=== PATIENT | female | born 1990 | race Hispanic/Latino ===

== ENCOUNTER 2020-10-30 17:31 | Observation (INO) | payer OTHER, MEDICAID ==
[~2020-10-30] VITALS: Ht 160 cm; Wt 100.7 kg
[2020-10-30 17:54] VITALS: BP 109/64
[2020-10-30 18:37] LABS: APPEARANCE,URINE Cloudy (CLEAR); BILIRUBIN,URINE Negative (NEGATIVE); COLOR,URINE Yellow (YELLOW); GLUCOSE, URINE (UA) 250 mg/dL (NEGATIVE); KETONES,URINE Trace mg/dL (NEGATIVE); LEUKOCYTE ESTERASE ,URINE Large (NEGATIVE); NITRATE,URINE Negative (NEGATIVE); OCCULT BLOOD,URINE Negative (NEGATIVE); PROTEIN,URINE Trace mg/dL (NEGATIVE)
[2020-10-30 18:51] LABS: BACTERIA,URINE Moderate /HPF (None Seen); MUCUS,URINE Moderate LPF (None Seen); SQUAMOUS EPITHELIAL CELL,UR Moderate /HPF (0-2)
[2020-10-30] MEDS ORDERED: LACTATED RINGERS 1000ML 1,000 ML IV ONE (19:57)
[2020-10-30] MEDS ORDERED: CEFTRIAXONE SODIUM 1 GM IVP SCH (20:00)
[2020-10-30] MEDS ORDERED: LACTATED RINGERS 1000ML 1,000 ML IV SCH (20:00)
== END 2020-10-31 08:30 | disposition home or self-care (01) ==
LOC: EDH 17:31 → LDH 17:37
PROVIDERS: ADMIT Obstetrics & Gynecology; ATTEND Obstetrics & Gynecology
DX: O62.9 Abnormality of forces of labor, unspecified (principal); O24.913 Unspecified diabetes mellitus in pregnancy, third trimester; Z86.16 Personal history of COVID-19; Z3A.37 37 weeks gestation of pregnancy
CPT/HCPCS: 59025; 81001; 82948 ×2; 87088; 96361 ×2; 96374; 99284; G0378 ×14; J0696; J7120 ×4; 96360

== ENCOUNTER 2020-12-04 02:50 | Inpatient (IN) | payer OTHER, MEDICAID ==
[2020-12-04] VITALS (11 sets, daily range): BP systolic 104–123; BP diastolic 55–84
[~2020-12-04] VITALS: Ht 160 cm; Wt 93.4 kg
[~2020-12-04 02:50] MED LIST: AMOX500C2 PO; CALC750T4 PO; GLYB5TAB8 PO; [UNRECOGNIZED DRUG - OTHER] PO
[2020-12-04 04:23] LABS: APPEARANCE,URINE Cloudy (CLEAR); BILIRUBIN,URINE Moderate (NEGATIVE); COLOR,URINE Dark Yellow (YELLOW); GLUCOSE, URINE (UA) Negative (NEGATIVE); KETONES,URINE Trace mg/dL (NEGATIVE); LEUKOCYTE ESTERASE ,URINE Small (NEGATIVE); NITRATE,URINE Negative (NEGATIVE); OCCULT BLOOD,URINE Large (NEGATIVE); PH,URINE 5.5 (5.0-8.0); PROTEIN,URINE POS 1+ mg/dL (NEGATIVE)
[2020-12-04 04:30] LABS: BACTERIA,URINE Few /HPF (None Seen); RBC,URINE >100 /HPF (0-1)
[2020-12-04] MEDS ORDERED: 0.9%NACL 1000ML 1,000 ML IV ONE ×3 (04:30→06:26)
[2020-12-04] MEDS ORDERED: METOCLOPRAMIDE 10 MG/2 ML VIAL IVP ONE (04:30)
[2020-12-04] MEDS ORDERED: ONDANSETRON 4MG INJ IVP ONE (04:30)
[2020-12-04] MEDS ORDERED: KETOROLAC 30MG VIAL (30MG/ML) IV ONE (04:30)
[2020-12-04 04:31] LABS: MUCUS,URINE Moderate LPF (None Seen)
[2020-12-04 05:48] LABS: BASOPHILS % (AUTO) 0.2 % (0.0-5.0); EOSINOPHILS % (AUTO) 0.6 % (0.0-8.0); HEMATOCRIT 44.1 % (36-48); LYMPHOCYTES % (AUTO) 5.5 % (21.0-51.0); MEAN CORPUSCULAR HEMOGLOBIN 22.8 pg (27.0-33.0); MEAN CORPUSCULAR HGB CONC 29.5 g/dL (32.0-36.0); MEAN CORPUSCULAR VOLUME 77.4 fL (79-99); MONOCYTES % (AUTO) 2.8 % (3.0-13.0); NEUTROPHILS % (AUTO) 90.6 % (40.0-77.0); PLATELET COUNT (AUTO) 294 K/uL (130-400); RED CELL DISTRIBUTION WIDTH 18.9 % (11.0-15.5); WHITE BLOOD COUNT (AUTO) 11.1 K/uL (4.8-10.8)
[2020-12-04 06:06] LABS: ALBUMIN 3.6 g/dL (3.5-5.0); BILIRUBIN,TOTAL 0.6 mg/dL (0.2-1.0); CREATININE 0.6 mg/dL (0.5-1.5); POTASSIUM 3.9 mmol/L (3.5-5.1); TOTAL PROTEIN, SERUM 7.5 g/dL (6.0-8.3)
[2020-12-04] MEDS ORDERED: MORPHINE 2 MG SYG IVP ONE (06:15)
[2020-12-04] MEDS ORDERED: FAMOTIDINE 20MG VIAL IV ONE ×2 (06:15→06:27)
[2020-12-04] MEDS ORDERED: MORPHINE 2 MG SYG ONE (06:26)
[2020-12-04] MEDS ORDERED: PANTOPRAZOLE 40 MG/VIAL ONE (06:26)
[2020-12-04] MEDS: PANTOPRAZOLE 40 MG/VIAL IVP SCH ×2 (06:37→08:50)
[2020-12-04] MEDS ORDERED: LACTULOSE 20 GM/30 ML UDCUP PO PRN (06:45)
[2020-12-04] MEDS ORDERED: ACETAMINOPHEN 325 MG TAB PO PRN ×2 (06:45)
[2020-12-04 07:09] LABS: HEMOGLOBIN A1C 6.8 % (4.0-6.0)
[2020-12-04 07:10] LABS: CHOLESTEROL 241 mg/dL (<200); HDL CHOLESTEROL 83 mg/dL (35-85); LDL DIRECT 129 mg/dL (0-99); TRIGLYCERIDES 62 mg/dL (30-200)
[2020-12-04] MEDS: LACTATED RINGERS 1000ML 1,000 ML IV SCH ×4 (08:45→23:52)
[2020-12-04] MEDS: CEFTRIAXONE 1G VIAL IVP SCH (08:45)
[2020-12-04] MEDS: MORPHINE 2 MG SYG IV PRN ×2 (08:46→18:32)
[2020-12-04] MEDS: ONDANSETRON 4MG INJ IV PRN ×2 (08:47→18:39)
[2020-12-05] VITALS (10 sets, daily range): BP systolic 107–122; BP diastolic 48–67
[2020-12-05 05:17] LABS: BASOPHILS % (AUTO) 0.1 % (0.0-5.0); EOSINOPHILS % (AUTO) 0.4 % (0.0-8.0); LYMPHOCYTES % (AUTO) 7.6 % (21.0-51.0); MEAN CORPUSCULAR HEMOGLOBIN 23.5 pg (27.0-33.0); MEAN CORPUSCULAR HGB CONC 30.3 g/dL (32.0-36.0); MEAN CORPUSCULAR VOLUME 77.6 fL (79-99); MONOCYTES % (AUTO) 5.1 % (3.0-13.0); NEUTROPHILS % (AUTO) 86.5 % (40.0-77.0); PLATELET COUNT (AUTO) 198 K/uL (130-400); RED BLOOD CELL COUNT(AUTO) 4.64 MIL/uL (4.00-5.50); RED CELL DISTRIBUTION WIDTH 18.6 % (11.0-15.5); WHITE BLOOD COUNT (AUTO) 7.5 K/uL (4.8-10.8)
[2020-12-05 05:45] LABS: CREATININE 0.6 mg/dL (0.5-1.5); POTASSIUM 3.1 mmol/L (3.5-5.1)
[2020-12-05] MEDS ORDERED: POTASSIUM CHLORIDE 10% ELIXIR 20 MEQ/15 ML UDCUP PO PRN (07:45)
[2020-12-05] MEDS ORDERED: KCL 20 MEQ ERTAB PO PRN (07:45)
[2020-12-05] MEDS ORDERED: POTASSIUM CHLORIDE 20MEQ/100ML 100 ML IV PRN (07:45)
[2020-12-05] MEDS: CEFTRIAXONE 1G VIAL IVP SCH (07:58)
[2020-12-05 08:00] LABS: ALBUMIN 2.4 g/dL (3.5-5.0); BILIRUBIN,DIRECT 0.1 mg/dL (0.0-0.3); BILIRUBIN,TOTAL 0.4 mg/dL (0.2-1.0); TOTAL PROTEIN, SERUM 5.6 g/dL (6.0-8.3)
[2020-12-05] MEDS: LACTATED RINGERS 1000ML 1,000 ML IV SCH ×3 (08:02→22:45)
[2020-12-05 08:06] LABS: CREATINE KINASE, TOTAL 26 U/L (21-232); MYOGLOBIN 19 ng/mL (10-92); TROPONIN I < 0.04 ng/mL (0.00-0.06)
[2020-12-05] MEDS: POTASSIUM CHLORIDE 20MEQ/100ML 100 ML IV PRN ×3 (08:24→15:37)
[2020-12-05] MEDS: PANTOPRAZOLE 40 MG/VIAL IVP SCH (08:24)
[2020-12-05] MEDS: MORPHINE 2 MG SYG IV PRN (08:24)
[2020-12-05] MEDS ORDERED: 0.9%NACL 1000ML 1,000 ML IV SCH ×2 (09:15→12:15)
[2020-12-06] VITALS (25 sets, daily range): BP systolic 101–126; BP diastolic 48–70
[2020-12-06] MEDS: LACTATED RINGERS 1000ML 1,000 ML IV SCH ×3 (03:31→21:53)
[2020-12-06 05:59] LABS: BASOPHILS % (AUTO) 0.1 % (0.0-5.0); HEMATOCRIT 33.5 % (36-48); LYMPHOCYTES % (AUTO) 12.2 % (21.0-51.0); MEAN CORPUSCULAR HEMOGLOBIN 23.4 pg (27.0-33.0); MEAN CORPUSCULAR HGB CONC 30.4 g/dL (32.0-36.0); MONOCYTES % (AUTO) 5.2 % (3.0-13.0); NEUTROPHILS % (AUTO) 80.9 % (40.0-77.0); PLATELET COUNT (AUTO) 194 K/uL (130-400); RED BLOOD CELL COUNT(AUTO) 4.35 MIL/uL (4.00-5.50); RED CELL DISTRIBUTION WIDTH 18.2 % (11.0-15.5)
[2020-12-06] MEDS: CEFTRIAXONE 1G VIAL IVP SCH (06:10)
[2020-12-06 06:21] LABS: ALBUMIN 2.2 g/dL (3.5-5.0); BILIRUBIN,TOTAL 0.3 mg/dL (0.2-1.0); CREATININE 0.5 mg/dL (0.5-1.5); POTASSIUM 3.5 mmol/L (3.5-5.1); TOTAL PROTEIN, SERUM 5.5 g/dL (6.0-8.3)
[2020-12-06] MEDS: PANTOPRAZOLE 40 MG/VIAL IVP SCH (08:21)
[2020-12-06] MEDS ORDERED: PROPOFOL 10 MG/ML 20ML VIAL IV ONE (14:13)
[2020-12-06] MEDS ORDERED: MIDAZOLAM HCL 1 MG/ML 2ML VIAL ONE (14:13)
[2020-12-06] MEDS ORDERED: ROCURONIUM 10MG/1ML SYR 10 MG/ML ML ONE (14:14)
[2020-12-06] MEDS ORDERED: FENTANYL CITRATE PF 50 MCG/1 ML 2ML VIAL ONE ×3 (14:14→16:03)
[2020-12-06] MEDS ORDERED: BUPIVACAINE/EPI/PF 0.25% 30ML VIAL IJ ONE (15:06)
[2020-12-06] MEDS ORDERED: LIDOCAINE HCL 1% 20 ML VIAL ONE (15:06)
[2020-12-06] MEDS ORDERED: ONDANSETRON 4MG INJ ONE (15:07)
[2020-12-06] MEDS ORDERED: KETOROLAC 30MG VIAL (30MG/ML) ONE (16:02)
[2020-12-06] MEDS ORDERED: GLYCOPYRROLATE 1 MG/5 ML SYRINGE ONE (16:07)
[2020-12-06] MEDS ORDERED: NEOSTIGMINE 5MG/5ML SYR IV ONE (16:07)
[2020-12-06] MEDS ORDERED: OXYCODONE/ACETAMIN 5/325MG TAB PO PRN (19:00)
[2020-12-07 00:15] VITALS: BP 120/67
[2020-12-07] MEDS: LACTATED RINGERS 1000ML 1,000 ML IV SCH (02:39)
[2020-12-07 03:58] VITALS: BP 138/74
[2020-12-07 05:13] LABS: BASOPHILS % (AUTO) 0.2 % (0.0-5.0); EOSINOPHILS % (AUTO) 1.3 % (0.0-8.0); HEMATOCRIT 32.8 % (36-48); LYMPHOCYTES % (AUTO) 11.8 % (21.0-51.0); MEAN CORPUSCULAR HEMOGLOBIN 23.3 pg (27.0-33.0); MEAN CORPUSCULAR HGB CONC 30.5 g/dL (32.0-36.0); MEAN CORPUSCULAR VOLUME 76.5 fL (79-99); MONOCYTES % (AUTO) 4.9 % (3.0-13.0); NEUTROPHILS % (AUTO) 81.3 % (40.0-77.0); PLATELET COUNT (AUTO) 207 K/uL (130-400); RED BLOOD CELL COUNT(AUTO) 4.29 MIL/uL (4.00-5.50); RED CELL DISTRIBUTION WIDTH 18.4 % (11.0-15.5); WHITE BLOOD COUNT (AUTO) 6.4 K/uL (4.8-10.8)
[2020-12-07 05:37] LABS: ALBUMIN 2.2 g/dL (3.5-5.0); BILIRUBIN,TOTAL 0.3 mg/dL (0.2-1.0); CREATININE 0.6 mg/dL (0.5-1.5); POTASSIUM 3.4 mmol/L (3.5-5.1); TOTAL PROTEIN, SERUM 5.8 g/dL (6.0-8.3)
[2020-12-07] MEDS: CEFTRIAXONE 1G VIAL IVP SCH (05:41)
[2020-12-07 08:00] VITALS: BP 126/70
[2020-12-07] MEDS: PANTOPRAZOLE 40 MG/VIAL IVP SCH (10:23)
[2020-12-07 12:14] VITALS: BP 113/62
[2020-12-07 14:30] VITALS: BP 120/70
== END 2020-12-07 15:56 | disposition home or self-care (01) | DRG 769 ==
LOC: EDH 02:50 → EDHIP 06:44 → 4CH 12-05 16:32
PROVIDERS: ADMIT Hospitalist; ATTEND Hospitalist
PROC: 0FT44ZZ Resection of Gallbladder, Percutaneous Endoscopic Approach (ICD-10-PCS; principal; 2020-12-06 15:15)
DX: O99.63 Diseases of the digestive system complicating the puerperium (principal); K85.10 Biliary acute pancreatitis without necrosis or infection; B17.9 Acute viral hepatitis, unspecified; K80.70 Calculus of gallbladder and bile duct without cholecystitis without obstruction; O86.20 Urinary tract infection following delivery, unspecified; K57.30 Diverticulosis of large intestine without perforation or abscess without bleeding; N83.202 Unspecified ovarian cyst, left side; N83.201 Unspecified ovarian cyst, right side; O24.93 Unspecified diabetes mellitus in the puerperium; R16.0 Hepatomegaly, not elsewhere classified; R79.89 Other specified abnormal findings of blood chemistry; E86.0 Dehydration; O99.215 Obesity complicating the puerperium; E66.9 Obesity, unspecified; M47.816 Spondylosis without myelopathy or radiculopathy, lumbar region; O26.63 Liver and biliary tract disorders in the puerperium; K59.00 Constipation, unspecified; K82.8 Other specified diseases of gallbladder; N85.2 Hypertrophy of uterus; Z83.3 Family history of diabetes mellitus; Z82.49 Family history of ischemic heart disease and other diseases of the circulatory system
CPT/HCPCS: 36415; 74176; 74181; 76705; 80048; 80053; 80061; 80076; 81001; 81025; 82150; 82550; 83036; 83690; 83874; 84132; 84484; 85025; 87088; C9113; G0378; J0696; J1885; J2250; J2405; J2704; J2710; J2765; J3010; J3480; J3490; J7030; J7120

== ENCOUNTER 2023-02-27 23:06 | Emergency (ER) | payer MEDICAID ==
[~2023-02-27] VITALS: Ht 160 cm; Wt 83.5 kg
[~2023-02-27 23:06] MED LIST changes: -AMOX500C2 PO; -CALC750T4 PO; -GLYB5TAB8 PO
[2023-02-28 02:06] LABS: BASOPHILS # (AUTO) 0.01 K/uL (0.00-0.20); BASOPHILS % (AUTO) 0.2 % (0.0-5.0); EOSINOPHILS # (AUTO) 0.13 K/uL (0.00-0.70); EOSINOPHILS % (AUTO) 2.7 % (0.0-8.0); HEMATOCRIT 39.9 % (36-48); IMMATURE GRANULOCYTE ABSOLUTE 0.02 K/uL (0-1); LYMPHOCYTES # (AUTO) 1.4 K/uL (1.0-4.8); LYMPHOCYTES % (AUTO) 28.6 % (21.0-51.0); MEAN CORPUSCULAR HEMOGLOBIN 25.8 pg (27.0-33.0); MEAN CORPUSCULAR HGB CONC 31.6 g/dL (32.0-36.0); MEAN CORPUSCULAR VOLUME 81.6 fL (79-99); MONOCYTES # (AUTO) 0.3 K/uL (0.1-1.0); MONOCYTES % (AUTO) 6.9 % (3.0-13.0); NEUTROPHILS # (AUTO) 2.9 K/uL (1.8-7.7); NEUTROPHILS % (AUTO) 61.2 % (40.0-77.0); PLATELET COUNT (AUTO) 192 K/uL (130-400); RED BLOOD CELL COUNT(AUTO) 4.89 MIL/uL (4.00-5.50); RED CELL DISTRIBUTION WIDTH 16.5 % (11.0-15.5); WHITE BLOOD COUNT (AUTO) 4.8 K/uL (4.8-10.8)
[2023-02-28 02:15] LABS: CREATININE 0.6 mg/dL (0.5-1.5); POTASSIUM 3.7 mmol/L (3.5-5.1)
[2023-02-28 02:18] LABS: APPEARANCE,URINE TURBID (CLEAR); BILIRUBIN,URINE NEGATIVE (NEGATIVE); COLOR,URINE RED (YELLOW); GLUCOSE, URINE (UA) >=1000 mg/dL (NEGATIVE); KETONES,URINE 10 mg/dL (NEGATIVE); LEUKOCYTE ESTERASE ,URINE 25 Leu/uL (NEGATIVE); NITRATE,URINE NEGATIVE (NEGATIVE); OCCULT BLOOD,URINE LARGE (NEGATIVE); PROTEIN,URINE 20 mg/dL (NEGATIVE); UROBILINOGEN,URINE 0.2 mg/dL (0.2-1.0)
[2023-02-28 02:19] LABS: ADD UA MICROSCOPIC YES
[2023-02-28 02:19] LABS: ALBUMIN 3.4 g/dL (3.5-5.0); BILIRUBIN,TOTAL 0.2 mg/dL (0.2-1.0); TOTAL PROTEIN, SERUM 6.6 g/dL (6.0-8.3)
[2023-02-28 02:20] LABS: RBC,URINE TNTC /HPF (0-1); SQUAMOUS EPITHELIAL CELL,UR FEW /HPF (0-2)
[2023-02-28] MEDS ORDERED: INSULIN HUMULIN R 100 UNIT/ML 3ML IV ONE (03:30)
[2023-02-28] MEDS ORDERED: LACTATED RINGERS 1000ML 1,000 ML IV ONE (03:30)
[2023-02-28 04:59] VITALS: BP 110/58; PULSE 88; RESP 18; O2SAT 98
== END 2023-02-28 05:02 | disposition home or self-care (01) ==
LOC: EDH 23:06
DX: O03.9 Complete or unspecified spontaneous abortion without complication (principal); E11.9 Type 2 diabetes mellitus without complications; Z79.899 Other long term (current) drug therapy; Z90.49 Acquired absence of other specified parts of digestive tract; Z98.890 Other specified postprocedural states
CPT/HCPCS: 99283; 80053; 85025; 81001; 36415; 96374; 96361; J1815; J7120